=== PATIENT | female | born 1985 | race Two or more races ===

== ENCOUNTER 2022-05-20 16:01 | Emergency (ER) | payer MEDICAID, OTHER ==
[~2022-05-20] VITALS: Ht 157.5 cm; Wt 78.6 kg
[2022-05-20] MEDS ORDERED: ONDANSETRON HCL 4 MG/2 ML VIAL IV ONE (16:45)
[2022-05-20] MEDS ORDERED: MORPHINE SULFATE 4 MG/ML SYR/VIAL IV ONE (16:45)
[2022-05-20] MEDS ORDERED: PANTOPRAZOLE 40 MG/10 ML VIAL INJ IV ONE (16:45)
[2022-05-20] MEDS ORDERED: SODIUM CHLORIDE 0.9% 1,000 ML IVB ONE (16:45)
[2022-05-20 18:26] LABS: Basophils # (auto) 0.1 10 ^3/uL (0-0.2); Basophils % (auto) 0.5 % (0.0-2.0); Eosinophils # (auto) 0 10 ^3/uL (0-0.8); Hematocrit 54.4 % (36.0-46.0); Hemoglobin 17.4 g/dL (12.2-16.2); Lymphocytes # (auto) 1.3 10 ^3/uL (0.4-5.4); Lymphocytes % (auto) 10.1 % (10.0-50.0); Mean Corpuscular Volume 84.3 fL (80.0-100.0); Monocytes # (auto) 1.1 10 ^3/uL (0-1.3); Monocytes % (auto) 8.2 % (0.0-12.0); Neutrophils # (auto) 10.7 10 ^3/uL (1.6-8.6); Neutrophils % (auto) 81.2 % (37.0-80.0); Nucleated Red Blood Cells % 0.2 %; Red Blood Cells 6.46 10^6/uL (4.0-5.20); Red Cell Distribution Width 14.2 % (11.8-14.3); White Blood Cell 13.2 10^3/uL (4.4-10.8)
[2022-05-20 18:42] LABS: Potassium 3.3 mmol/L (3.5-5.1)
[2022-05-20 18:48] LABS: Albumin 4.7 g/dL (3.4-5.0); BUN/Creatinine Ratio 19.8; Calcium 9.8 mg/dL (8.5-10.1)
[2022-05-20] MEDS ORDERED: ONDA-144 PO (19:31)
[2022-05-20] MEDS ORDERED: PANT40TA2 PO (19:31)
[2022-05-20 21:35] VITALS: BP 153/100
== END 2022-05-20 22:11 | disposition home or self-care (01) ==
LOC: ER 16:01
DX: R10.13 Epigastric pain (principal); R11.2 Nausea with vomiting, unspecified; R05.9 Cough, unspecified; R10.2 Pelvic and perineal pain; Z88.1 Allergy status to other antibiotic agents; Z88.2 Allergy status to sulfonamides
CPT/HCPCS: 36415; 76705; 80053; 82150; 83690; 84702; 85025; 96361; 96374; 96375; 99284; C9113; J2270; J2405; J7030